=== PATIENT | female | born 1945 | race African-American/Black ===

== ENCOUNTER 2019-11-14 19:06 | Emergency (ER) | payer OTHER ==
[~2019-11-14] VITALS: Ht 157.5 cm; Wt 81.7 kg
[~2019-11-14 19:06] MED LIST: ASPIR 8181 MG PO; COLACE100 MG PO; DEPAKOTE 250MG250 M1 PO; DEPAKOTE ER500 MG PO; DOXYCYCLINE 10100 MG PO; DUONEB 2.5-0.5 M3 ML INH; FLORANEX PACKET1 GM PO; KEPPRA 500 MG500 M1 PO; LASIX 40 MG TAB40 M2 PO; LEVAQUIN 500 M500 M2 PO; LEXAPRO20 MG PO; LIDODERM 5%1 PATC1 TRANSDERM; LISINOPRIL20 MG PO; LOPRESSOR50 PO; LOVASTATIN 20 M20 MG PO; MOBIC7.5 MG PO; NEURONTIN 300300 M1 PO; PROBIOTIC1 EAC1 PO; SEROQUEL 25 MG25 M1 PO; TYLENOL325 MG PO; ULTRAM 50MG TAB50 MG PO; VANCOMYCIN100 MG/ML NG; oscal
[2019-11-14 19:24] LABS: HEMOGLOBIN 10.7 gm/dL (12.0-15.0); MCH 32.2 pg (26.0-34.0); MCHC 34.4 g/dL (28.0-37.0); MCV 93.5 fL (80.0-100.0); PLATELET COUNT 262 thou/uL (150-400); RBC 3.31 mil/uL (4.20-5.00); RDW 15.7 % (10.5-14.5); WBC 10.4 thou/uL (4.0-11.0)
[2019-11-14 19:36] LABS: ANION GAP 6 mmol/L (7-16); BUN 22 mg/dL (7-18); CALCIUM 9.5 mg/dL (8.5-10.1); CHLORIDE 103 mmol/L (98-107); CO2 32 mmol/L (21-32); CREATININE 0.7 mg/dL (0.6-1.0); GLUCOSE 117 mg/dL (74-106); POTASSIUM 3.9 mmol/L (3.5-5.1); SODIUM 141 mmol/L (136-145)
[2019-11-14 19:45] LABS: MAGNESIUM 1.7 mg/dL (1.8-2.4); TROPONIN-I <0.06 ng/mL (<0.06)
[2019-11-14 19:46] LABS: HCO3 30.4 mmol/L (22.0-26.0); PCO2 49.1 mmHg (35.0-45.0); PO2 191.9 mmHg (80.0-100.0); sO2 99.3 % (92.0-98.0)
[2019-11-14 20:04] LABS: ABSOLUTE NEUTROPHILS 2.9 thou/uL (1.4-8.2); PLATELET ESTIMATE NORMAL
[2019-11-14] MEDS ORDERED: VITAMIN C500 M2 PO (20:42)
[2019-11-14] MEDS ORDERED: DEPAKOTE 250MG250 MG PO (20:44)
[2019-11-14] MEDS ORDERED: CRESTOR40 MG PO (20:44)
[2019-11-14] MEDS ORDERED: DEPAKOTE500 MG PO (20:45)
[2019-11-14] MEDS ORDERED: FERROUSUL325 M1 PO (20:45)
[2019-11-14] MEDS ORDERED: NEURONTIN 400M400 M2 PO (20:45)
[2019-11-14] MEDS ORDERED: LANTUSSOLASTAR SUBQ (20:47)
[2019-11-14] MEDS ORDERED: LINZESS145 MCG PO (20:48)
[2019-11-14] MEDS ORDERED: LEXAPRO5 MG PO (20:48)
[2019-11-14] MEDS ORDERED: MIRALAX17 G1 PO (20:48)
[2019-11-14] MEDS ORDERED: MOBIC7.5 MG PO (20:48)
[2019-11-14] MEDS ORDERED: NORVASC10 MG PO (20:49)
[2019-11-14] MEDS ORDERED: NOVOLOG100 UNIT/M SUBQ ×2 (20:49→20:50)
[2019-11-14] MEDS ORDERED: MULTIVITAMINS1 EAC7 PO (20:49)
[2019-11-14] MEDS ORDERED: PROBIOTIC1 EAC7 PO (20:50)
[2019-11-14] MEDS ORDERED: PULMICORT FLEX90 MCG INH (20:51)
[2019-11-14] MEDS ORDERED: TOPROL XL100 MG PO (20:51)
[2019-11-14] MEDS ORDERED: TYLENOL EXTRA500 MG PO (20:52)
[2019-11-14] MEDS ORDERED: ZINC SULFATE220 MG PO (20:53)
[2019-11-14 23:59] VITALS: BP 159/61
--- NOTE | 2019-11-16 08:31 | EKG ---
[facility] [place] [address] ELECTROCARDIOGRAM REPORT Name: ANDRESSA TYLER Room #: DEP [facility]#: [id number] Admission: 11/14/19 Attend Phys: Discharge: 11/15/19 Date of : 41 Report #: [id number] THIS REPORT FOR: cc: Josie Thomason MD, Ramilo MD Lundgren,Pola Dyer MD [facility] ~ THIS REPORT FOR: //name// [facility] ED Test Date: 2019-11-14 Test Time: 19:24:13 Pat Name: ANDRESSA TYLER Department: Room: Gender: F [employer] Cutter Operator: [place] [id number] : 1945 Requested By: Tristan Pederson Order Number: [id number] MD: Pola Osorio Measurements Intervals Pep Rate: 65 P: 92 KS: 133 QRS: -3 QRSD: 88 T: 7 QT: 434 QTc: 452 Interpretive Statements Sinus rhythm Multiple premature complexes, vent & supraven Nonspecific ST segment abnormality Compared to ECG 02/03/2017 13:37:52 Ventricular and supraventricular complexes are now present Electronically Signed On 11-16-2019 8:31:41 CDT by Pola Osorio [email or web address] <ELECTRONICALLY SIGNED> By: Pola Osorio MD, [facility] 11/16/19830 23 23 Pola Osorio MD, [facility] /EPI
== END 2019-11-15 00:33 | disposition home or self-care (01) ==
LOC: ER 19:06
PROVIDERS: Emergency Medicine
DX: R06.00 Dyspnea, unspecified (principal); I10 Essential (primary) hypertension; E78.5 Hyperlipidemia, unspecified; Z79.82 Long term (current) use of aspirin; Z79.899 Other long term (current) drug therapy